=== PATIENT | male | born 1950 | race Caucasian/White ===

== ENCOUNTER 2018-11-02 01:59 | Outpatient (CLI) | payer OTHER, SELFPAY ==
--- NOTE | 2018-11-02 11:30 | NS.NUTBLAN_ITS ---
DESCRIPTION/ASSESSMENT: Sylvie Sweet (Chip) presents for nutrition for treatment of hyperglycemia with diabetes. He reports A1c 8.5 over 6 months and experiences some thirst and vision changes. He wishes to learn about how to manage food to manage blood sugars. FOOD: Sylvie states Halloween put him over the edge and believes that has caused his A1c to increase. He states he has cut back on sweets and is eating butter; has cut his carbohydrate choices. He eats 3 meals a day; oatmeal bananan for breakfast or ham/cheese omelet. Lunch when he is not hungry is salad or Progresso soup. Supper is chicken tenders with yogurt; beef stew with frozen vegetables. He snacks on yogurt or fruit. He believes lack of motivation is his biggest barrier. MONITORING BLOOD SUGARS: He does not monitor his blood sugars. MEDICATION: He takes 500mg Metformin daily. PHYSICAL ACTIVITY: He goes to the gym once a week for 1 hour a day for the past 3 weeks. STRESS: He admits to typical stress only. He has people in his life who care about him and he derives satisfaction from helping people in unique ways. INTERVENTION: FOOD: Reviewed diabetes food guide focused on carbohydrate sources, portions, distribution. Discussed some mindful eating concepts. MONITORING: Discussed advantages of monitoring blood sugar and reviewed process and technique for monitoring. Random blood sugar today 166mg/dl. PHYSICAL ACTIVITY: Discussed barriers to increased physical activity. He feels he is not motivated to do this. Emphasized importance of movement with decreased carbohydrate choices as a way to manage blood sugars. Discussed support for diabetes self management. He wishes to be added to the Diabetes Support Group mailing for ongoing support. PLAN: Abdirizak will monitor carbohydrate intake as an initial step to managing blood sugars He will consider monitoring blood sugars in the future He will maintain his current physical activity and consider small walks daily He will plan to attend Diabetes Support Group in December. IN: 1125 OUT 1200 No group diabetes offered at this time.
== END 2018-11-02 02:19 ==
PROVIDERS: PCP Neuromusculoskeletal Medicine & OMM; Visit Provider Dietitian, Registered
DX: E11.65 Type 2 diabetes mellitus with hyperglycemia (principal); Z79.84 Long term (current) use of oral hypoglycemic drugs; Z71.3 Dietary counseling and surveillance
CPT/HCPCS: 97802

== ENCOUNTER 2022-08-20 09:31 | Day surgery (SDC) | payer OTHER, SELFPAY ==
[2022-08-20 10:34] VITALS: BP 125/77; PULSE 67; RESP 16; TEMP 36.7; O2SAT 97
[2022-08-20] MEDS: Tropicam./Phenyleph. (1/2.5%) 5 ML BTL OS ×3 (10:42→10:52)
--- NOTE | 2022-08-20 10:45 | W.ANESPRE ---
General Info Date of Service Date Performed: 08/20/22 Height: 5 ft 7 in Weight: 105.1 kg Body Mass Index (BMI): 36.3 Surgical Procedure: Operation Date: 08/20/22 12:40 Proposed Procedure Side Surgeon p Cataract Extraction with IOL Implant Left Tylor Loja MD Meds Allergies and Home Medications Allergies Allergy/AdvReac Type Severity Reaction Status Date / Time lisinopril Allergy Verified 08/20/22 10:29 Home Medication Medication Instructions Recorded acetaminophen 500 mg tablet 2,000 mg PO DAILY 08/19/22 aspirin 81 mg capsule,delayed 81 mg PO DAILY 08/19/22 release atorvastatin 20 mg tablet 20 mg PO DAILY 08/19/22 cyclosporine 0.05 % eye drops in a 1 drp ophthalmic (eye) BID 08/19/22 dropperette (Restasis) empagliflozin 25 mg tablet 25 mg PO DAILY 08/19/22 (Jardiance) losartan 100 mg tablet 100 mg PO DAILY 08/19/22 metformin 500 mg tablet,extended 500 mg PO DAILY 08/19/22 release 24hr ycgipetb-wyn-ywzhp acid 300 1 tab PO DAILY 08/19/22 mcg-lycopene 600 mcg-lutein 300 mcg tablet (Centrum Silver Men) omeprazole 20 mg capsule,delayed 20 mg PO DAILY 08/19/22 release tamsulosin 0.4 mg capsule 0.8 mg PO DAILY 08/19/22 Current Visit Medications: Current Medications Generic Name Dose Route Start Last Admin Trade Name Freq PRN Reason Stop Dose Admin Acetaminophen 1,000 mg 08/20/22 06:00 Acetaminophen 500 Mg Tab PO Q4H PRN PRN Miscellaneous Medication 0 ml 08/20/22 06:00 Prednisolone 1%, Moxifloxacin 0.5%, Nepafenac 0.1% 5ml Btl OS DIRECTED [facility] Miscellaneous Medication 0 ml 08/20/22 06:00 Tropicam./Phenyleph. (1/2.5%) 5 Ml Btl OS DIRECTED MONI Tetracaine HCl 0 ml 08/20/22 06:00 Tetracaine 0.5% 4 Ml Btl OS DIRECTED [facility] PFSH Active Problems Active Problems: Problem Status Onset Code Nuclear sclerotic cataract of left eye H25.12 Medical History Medical History Arthralgia of ankle Arthropathy Backache Cataract Diabetes mellitus Environmental allergies HLD (hyperlipidemia) Hyperglycemia Hypertensive disorder Microalbuminuria due to type 2 diabetes mellitus APARNA (obstructive sleep apnea) Senile hyperkeratosis Tobacco Smoking/Tobacco Use Status: Never Alcohol Alcohol Intake: never Substance Use Substance use: Never Substance use type: does not use Vital Signs and Lab Results Vital Signs Most Recent Vital Signs in EMR: Most Recent Vital Signs Temp Pulse Resp BP Pulse Ox 36.7 C 67 16 125/77 97 08/20/22 10:34 08/20/22 10:34 08/20/22 10:34 08/20/22 10:34 08/20/22 10:34 Lab Results Blood Type / Crossmatch: No Data to Display Complete Blood Count: No Data to Display Complete Metabolic Panel: No Data to Display Liver Function Panel: No Data to Display Coagulation Panel: No Data to Display Cardiac Panel: No Data to Display Arterial Blood Gas: No Data to Display Venous Blood Gas: No Data to Display Pancreas Panel: No Data to Display Thyroid Panel: No Data to Display Infectious Disease: No Data to Display Blood Cultures: No Data to Display Toxicology Panel: No Data to Display Anesthesia Assessment and Plan Anesthesia History Personal History: No History of Anesthesia Complications Family History: No Family History of Anesthesia Complications Exercise Tolerance Exercise Tolerance: Metabolic Equivalents>4 Pertinent Negatives Pertinent Negatives: No Symptoms of GERD Cardiac & Pulmonary Exam Cardiac Exam: Normal S1/S2 Heart Sounds Pulmonary Exam: Clear Bilateral Breath Sounds Implantable Cardiac Device Does patient have a Pacemaker or an ICD?: No Airway Exam Known Difficult Airway: No Mallampati Class: 1 Mouth Opening: Normal (> 3cm) Thyromental Distance: Greater than 3 cm Neck Range of Motion: Full ROM Neck Circumference: Normal Teeth Condition: Normal Dentition ASA Classification ASA Score: ASA 2 Emergency Case?: No NPO Status NPO Status: NPO Clears >2 hours, Solids >8 hours Anesthesia Plan Resuscitation Status: Full Code Anesthesia Technique: MAC Anesthesia Airway Planned: Natural Airway Monitors Used: Standard Monitors
[2022-08-20 10:46] VITALS: BMI 36.3
[2022-08-20] MEDS: Tetracaine 0.5% 4 ML BTL OS (12:15)
[2022-08-20] MEDS: Lidocaine 2% Jelly 6 ML SYR (12:16)
[2022-08-20] MEDS: Balanced Salt Soln.-PLUS 500 ML BAG (12:16)
[2022-08-20] MEDS: Duovisc Viscoelastic System EACH 1 EACH (12:16)
[2022-08-20] MEDS: Povidone-Iodine Ophth 30 ML BTL (12:18)
[2022-08-20 12:51] VITALS: BP 120/75; PULSE 67; RESP 16; TEMP 36.4; O2SAT 97
--- NOTE | 2022-08-20 12:52 | PDOC.DSDIS_ITS ---
Date of service: 08/20/22 Time of Service: 12:52 Discharge Plan Disposition Patient Disposition: HOME Condition: Good Discharge Details Attending Provider: Tylor Loja Primary Care Provider: Bertram Dill [facility] and New Rx's Prescriptions: No Action atorvastatin 20 mg Tablet 20 mg PO DAILY aspirin 81 mg Capsule,Delayed Release(Dr/Ec) 81 mg PO DAILY tamsulosin 0.4 mg Capsule 0.8 mg PO DAILY omeprazole 20 mg Capsule,Delayed Release(Dr/Ec) 20 mg PO DAILY losartan 100 mg Tablet 100 mg PO DAILY cyclosporine [Restasis] 0.05 % Dropperette 1 drp ophthalmic (eye) BID metformin 500 mg Tablet Extended Release 24hr 500 mg PO DAILY Centrum Silver Men 300-600-300 mcg Tablet 1 tab PO DAILY Jardiance 25 mg Tablet 25 mg PO DAILY acetaminophen 500 mg Tablet 2,000 mg PO DAILY Discharge Instructions Stand Alone Forms: Post-op Topical Cataract, Brayan Hsu (DSU) Discharge Orders Discharge Orders: Discharge Order (Routine); Ordered 08/20/22 Ordered By: Tylor Loja DS: Diagnosis Discharge Diagnosis (1) Nuclear sclerotic cataract of left eye: Status: Resolved
--- NOTE | 2022-08-20 12:53 | W.PM.OP ---
Date of service: 08/20/22 Time of Service: 12:53 Operative Note Operative Note DATE OF PROCEDURE: 08/20/22 PRE-OP DIAGNOSIS: Nuclear cataract, left eye POST-OP DIAGNOSIS: same PROCEDURE: Cataract extraction using phacoemulsification with intraocular lens implant, left eye SURGEON: Tylor Loja ANESTHESIA TYPE: Local By Surgeon and MAC Refer to Anesthesia Record PATHOLOGY: none sent COMPLICATIONS: None Patient was transported to: same day Patient's condition: stable Implants: Sriram and Sriram / [employer] Tecnis [id number] Indications: Progressive decreased vision due to cataract, left eye Procedure Description: CATARACT SURGERY OPERATIVE REPORT PREOPERATIVE DIAGNOSIS: 1. Nuclear cataract, left eye POSTOPERATIVE DIAGNOSIS: Same OPERATION: 1. Cataract extraction using phacoemulsification with posterior chamber intraocular lens implant, left eye. IOL: IOL Executive Receptionist/Model: Sriram & Sriram / BERTHA Tecnis [id number] IOL Power: + 21.0 diopters IOL Serial Number: [id number] Optic Diameter: 6.0 mm Haptic/Overall Diameter: 13.0 mm PHACO INFO: [facility] System with OZil and Active [employer]uidics Cumulative Dispersed Energy (CDE): 9.80 seconds SURGEON: Tylor Loja MD, CHIQUI ANESTHESIA: Monitored [facility] (MAC), with local sub-tenon's anesthetic infiltration COMPLICATIONS: None SPECIMENS: None INDICATIONS FOR PROCEDURE: The patient is a 72-year-old gentleman with history of diminished visual acuity in his left eye secondary to the development of significant nuclear cataract. The option of cataract surgery was offered to the patient and he wished to proceed. PROCEDURE: The correct surgical eye was identified and marked as the left eye and the pupil was dilated in the preoperative area using mydriatics and cycloplegics. The dilated pupil size was 6.5 mm. Oral sedation was administered in the form of an Imprimis MKO Melt (midazolam 3mg/ketamine 25mg/ondansetron 2mg). The patient was brought to the operating room where cardiopulmonary monitoring was instituted and surgical time-out was performed, confirming the correct operative eye and IOL power. Topical anesthesia was administered and ophthalmic povidone-iodine 5% was instilled into the conjunctival fornices. Lidocaine gel was applied to the cornea and the soila-ocular area was prepped with Betadine 10% solution and draped in the usual sterile fashion for intraocular surgery, including an aperture drape. A Tegaderm transparent film dressing was cut in half and used to cover the lashes and lid margins. Care was taken to sequester the lashes and lid margins under the Tegaderm dressing. A lid speculum was placed between the lids of the operative eye and the Kameron LuxOR Revalia operating microscope was maneuvered into position. Shirley scissors were then used to make a conjunctival buttonhole approximately 6mm posterior to the limbus in the inferonasal quadrant. Blunt dissection was carried out to expose bare sclera, and a blunt-tipped sub-tenon?s anesthesia cannula was introduced and passed posteriorly along the globe where non-preserved plain lidocaine was injected into posterior sub-Tenon?s space. A sideport knife was used to make a paracentesis port superiorly/superiortemporally. Intraocular phenylephrine/lidocaine was injected int the anterior chamber.. The anterior chamber was filled with viscoelastic. A keratome knife was used to construct a 2-plane near-clear corneal tunnel extending 2.0mm into clear cornea temporally. A flap was raised on the anterior capsule and capsulorhexis forceps were used to complete a continuous curvilinear capsulorhexis of 5.0 mm. Capsulorhexis was challenging due to constant patient movement. Balanced salt solution was then used to perform cortical cleaving hydrodissection and nuclear hydrodelineation until the lens could be freely rotated within the capsular bag. The lens nucleus was then disassembled and removed within the capsular bag and iris plane using phacoemulsification. The procedure had to be stopped multiple times to reposition the head and replace O2 sat monitor due to constant patient movement. Residual cortical material was removed using the 45-degree angled silicone I/A tip with 0.3mm port. The posterior capsule was carefully polished to remove as much residual lens epithelial cells as safely possible. The capsular bag was then inflated and the anterior chamber deepened with viscoelastic. The lens implant described above was inserted into the capsular bag using the BERTHA Chili Injector. A Kuglen hook was used to dial the IOL into position. Residual viscoelastic was then removed first from posterior to the IOL, then from the anterior chamber using the I/A handpiece. The lens implant was noted to center nicely within the capsular bag. The incisions were stromally hydrated, and the anterior chamber was reformed using BSS. Then 0.5cc of moxifloxacin 1.0mg/ml were injected into the capsular bag and anterior chamber. The incisions were checked with a Weck spear and found to be secure. Several drops of ophthalmic povidone-iodine 5% were then applied to the eye followed by two drops of Imprimis combination prednisolone/moxifloxacin/nepafenac solution. The drapes were removed and a clear plastic protective eye shield was placed over the eye. The patient was then returned to Same Day Surgery in stable condition.
--- NOTE | 2022-08-20 13:10 | W.ANESPOSTOP ---
Postoperative Evaluation Date, Time and Location Date Performed: 08/20/22 Time Performed: 12:55 Patient Location: Day Surgery Unit Vital Signs Most Recent Imported Vital Signs: Most Recent Vital Signs Temp Pulse Resp BP Pulse Ox 36.4 C L 67 16 120/75 97 08/20/22 12:51 08/20/22 12:51 08/20/22 12:51 08/20/22 12:51 08/20/22 12:51 Pain Score Most Recent Pain Score: Most Recent Pain Score Pain Level 0 08/20/22 12:51 Assessment Mental Status: Awake (Alert & Oriented to Patient Baseline) Airway and Respiratory Function: Patent airway with normal (patient baseline) respiratory exam Cardiovascular Function: Hemodynamically Stable Hydration Status: Adequately Hydrated Nausea & Vomiting: No Nausea or Vomiting Pain: Pt. Denies Any Pain Peripheral Nerve Block: Patient did not receive a nerve block
[2022-08-20 13:22] VITALS: BP 144/81; PULSE 68; RESP 16; TEMP 36.2; O2SAT 98
== END 2022-08-20 13:28 | disposition home or self-care (01) ==
PROVIDERS: PCP Neuromusculoskeletal Medicine & OMM; Visit Provider Ophthalmology
PROC: (CPT 66984; principal; 2022-08-20 12:30)
DX: H25.12 Age-related nuclear cataract, left eye (principal); G47.33 Obstructive sleep apnea (adult) (pediatric); E11.9 Type 2 diabetes mellitus without complications
CPT/HCPCS: 66984; V2632